=== PATIENT | female | born 2000 | race Caucasian/White ===

== ENCOUNTER 2019-09-25 13:38 | Outpatient (CLI) | payer MEDICAID ==
[~2019-09-25] VITALS: Ht 167.6 cm; Wt 90.7 kg
[2019-09-25 13:42] VITALS: BP 125/76
[2019-09-25 14:19] LABS: MICROSCOPIC INDICATED
[2019-09-25] MEDS ORDERED: PREN1TAB60 PO (14:25)
[2019-09-25] MEDS ORDERED: ASPI-496 PO (14:25)
== END 2019-09-25 15:12 | disposition home or self-care (01) ==
LOC: LDOP 13:38
PROVIDERS: ATTEND Obstetrics & Gynecology
DX: O42.912 Preterm premature rupture of membranes, unspecified as to length of time between rupture and onset of labor, second trimester (principal); Z3A.26 26 weeks gestation of pregnancy
CPT/HCPCS: 59025; 81001; 84112; 87086; 99201; G0463

== ENCOUNTER 2019-09-28 18:53 | Observation (INO) | payer OTHER, MEDICAID ==
[~2019-09-28] VITALS: Ht 167.6 cm; Wt 91.0 kg
[~2019-09-28 18:53] MED LIST: ASPI-496 PO; PREN1TAB60 PO
[2019-09-28 19:00] VITALS: BP 129/77
[2019-09-28 19:15] LABS: MICROSCOPIC NOT IND
[2019-09-28] MEDS ORDERED: TERBUTALINE 1 MG/ML, 1ML IV STA (20:27)
[2019-09-28] MEDS ORDERED: TERBUTALINE 1 MG/ML, 1ML ONE (20:29)
== END 2019-09-28 23:23 | disposition home or self-care (01) ==
LOC: LDOP 18:53 → LDIP 20:47
PROVIDERS: ADMIT Obstetrics & Gynecology; ATTEND Obstetrics & Gynecology
DX: O23.42 Unspecified infection of urinary tract in pregnancy, second trimester (principal); O26.892 Other specified pregnancy related conditions, second trimester; R10.2 Pelvic and perineal pain; O99.89 Other specified diseases and conditions complicating pregnancy, childbirth and the puerperium; M54.2 Cervicalgia; Z3A.26 26 weeks gestation of pregnancy
CPT/HCPCS: 81003; 87086; 96374; 99211; G0378; J3105; 96372; G0463

== ENCOUNTER 2019-09-30 12:01 | Outpatient (CLI) | payer OTHER, MEDICAID ==
[~2019-09-30] VITALS: Ht 167.6 cm; Wt 91.3 kg
[2019-09-30] MEDS ORDERED: BETAMETHASONE 6 MG/ML, 5ML IM ONE (12:27)
[2019-09-30] MEDS ORDERED: BETAMETHASONE 6 MG/ML, 5ML IM SCH (12:30)
[2019-09-30 12:47] LABS: MICROSCOPIC INDICATED
[2019-09-30 12:51] VITALS: BP 139/65
[2019-09-30] MEDS ORDERED: PLEASE ENTER HEIGHT AND WEIGHT MC SCH (13:00)
[2019-09-30 17:55] LABS: AMPHETAMINE SCREEN, URINE Negative (Negative); BARBITURATE SCREEN, URINE Negative (Negative); BENZODIAZEPINE SCREEN, URINE Negative (Negative); CANNABINOID SCREEN, URINE Negative (Negative); COCAINE SCREEN, URINE Negative (Negative); METHADONE SCREEN, URINE Negative (Negative); OPIATE SCREEN, URINE Negative (Negative)
== END 2019-09-30 13:30 | disposition home or self-care (01) ==
LOC: LDOP 12:01
PROVIDERS: ATTEND Obstetrics & Gynecology
DX: O99.89 Other specified diseases and conditions complicating pregnancy, childbirth and the puerperium (principal); R10.9 Unspecified abdominal pain; Z3A.27 27 weeks gestation of pregnancy; Z79.899 Other long term (current) drug therapy
CPT/HCPCS: 59025; 76815; 80307; 81001; 84112; 87086; 96372; 99211; J0702; G0463

== ENCOUNTER 2019-10-01 12:17 | Outpatient (CLI) | payer OTHER, MEDICAID ==
[~2019-10-01] VITALS: Ht 167.6 cm; Wt 92.3 kg
[2019-10-01 12:31] VITALS: BP 134/75
[2019-10-01] MEDS ORDERED: BETAMETHASONE 6 MG/ML, 5ML IM ONE (13:00)
== END 2019-10-01 13:10 | disposition home or self-care (01) ==
LOC: LDOP 12:17
PROVIDERS: ATTEND Obstetrics & Gynecology
DX: O26.892 Other specified pregnancy related conditions, second trimester (principal); Z3A.27 27 weeks gestation of pregnancy; Z79.899 Other long term (current) drug therapy
CPT/HCPCS: 81003; 96372; 99211; J0702; G0463

== ENCOUNTER 2019-10-17 18:16 | Outpatient (CLI) | payer OTHER, MEDICAID ==
[~2019-10-17] VITALS: Ht 167.6 cm; Wt 92.7 kg
[2019-10-17 19:36] LABS: MICROSCOPIC NOT IND
[2019-10-17] MEDS ORDERED: NIFE10CA49 PO (19:50)
== END 2019-10-17 20:59 | disposition home or self-care (01) ==
LOC: LDOP 18:16
PROVIDERS: ATTEND Obstetrics & Gynecology
DX: O42.913 Preterm premature rupture of membranes, unspecified as to length of time between rupture and onset of labor, third trimester (principal); Z3A.29 29 weeks gestation of pregnancy
CPT/HCPCS: 59025; 76815; 81003; 84112; 99211; G0463

== ENCOUNTER 2019-11-22 20:44 | Outpatient (CLI) | payer OTHER, MEDICAID ==
[~2019-11-22] VITALS: Ht 167.6 cm; Wt 96.8 kg
[~2019-11-22 20:44] MED LIST changes: +NIFE10CA49 PO
[2019-11-22] MEDS ORDERED: ACETAMINOPHEN 325 MG TABLET ONE (21:06)
[2019-11-22 21:14] LABS: MICROSCOPIC INDICATED
[2019-11-22] MEDS ORDERED: ACETAMINOPHEN 325 MG TABLET PO PRN (21:30)
== END 2019-11-22 22:41 | disposition home or self-care (01) ==
LOC: LDOP 20:44
PROVIDERS: ATTEND Obstetrics & Gynecology
DX: O42.913 Preterm premature rupture of membranes, unspecified as to length of time between rupture and onset of labor, third trimester (principal); O62.9 Abnormality of forces of labor, unspecified; Z3A.34 34 weeks gestation of pregnancy
CPT/HCPCS: 59025; 81001; 87086

== ENCOUNTER → 2019-12-09 | Outpatient (CLI) | payer OTHER, MEDICAID ==
[~2019-12-09] MED LIST changes: +ACETAMINOPHEN 500 MG TABLET ONE; +BUPIVACAINE 0.25% ONE; +IBUP-1902 PO; +LIDOCAINE 1%, 20ML ONE; +MISOPROSTOL 200 MCG TABLET ONE; +NEWBORN KIT ONE; +ONDANSETRON 2MG/ML, 2ML ONE; +OXYTOCIN 30U/ 0.9% NaCL 500ML 500 ML ONE
== END | disposition home or self-care (01) ==
LOC: LDOP 14:54
PROVIDERS: ATTEND Obstetrics & Gynecology
DX: O13.3 Gestational [pregnancy-induced] hypertension without significant proteinuria, third trimester (principal); Z3A.37 37 weeks gestation of pregnancy
CPT/HCPCS: 59025; 84112

== ENCOUNTER 2019-12-11 14:24 | Inpatient (IN) | payer OTHER, MEDICAID ==
[~2019-12-11] VITALS: Ht 167.6 cm; Wt 98.2 kg
[~2019-12-11 14:24] MED LIST changes: -ACETAMINOPHEN 500 MG TABLET ONE; -BUPIVACAINE 0.25% ONE; -IBUP-1902 PO; -LIDOCAINE 1%, 20ML ONE; -MISOPROSTOL 200 MCG TABLET ONE; -NEWBORN KIT ONE; -ONDANSETRON 2MG/ML, 2ML ONE; -OXYTOCIN 30U/ 0.9% NaCL 500ML 500 ML ONE
[2019-12-11] MEDS ORDERED: OXYTOCIN 30U/ 0.9% NaCL 500ML 500 ML IV ONE (14:46)
[2019-12-11] MEDS ORDERED: D5%-LACTATED RINGERS 1,000 ML IV SCH (14:46)
[2019-12-11] MEDS ORDERED: OXYTOCIN 30U/ 0.9% NaCL 500ML 500 ML IV PRN (14:46)
[2019-12-11] MEDS ORDERED: OXYTOCIN 30U/ 0.9% NaCL 500ML 500 ML ONE (14:51)
[2019-12-11] MEDS ORDERED: TERBUTALINE 1 MG/ML, 1ML IVPush PRN (15:00)
[2019-12-11] MEDS ORDERED: FENTANYL PF 100 MCG/2ML IVPush PRN (15:00)
[2019-12-11] MEDS ORDERED: CALCIUM CARBONATE 500 MG TAB.CHEW PO PRN (15:00)
[2019-12-11] MEDS ORDERED: ONDANSETRON 2MG/ML, 2ML IVPush PRN (15:00)
[2019-12-11] MEDS ORDERED: FENTANYL PF 100 MCG/2ML IV PRN (15:00)
[2019-12-11] MEDS ORDERED: TERBUTALINE 1 MG/ML, 1ML SQ PRN (15:00)
[2019-12-11 15:16] LABS: BASOPHILS # (AUTO) 0.01 x10^3/uL (0-0.3); BASOPHILS % (AUTO) 0 % (0-1); EOSINOPHILS # (AUTO) 0.07 x10^3/uL (0-0.8); EOSINOPHILS % (AUTO) 1 % (1-7); LYMPHOCYTES # (AUTO) 1.58 x10^3/uL (1-6.1); LYMPHOCYTES % (AUTO) 21 % (22-44); MD NO; MEAN CORPUSCULAR VOLUME 91.1 fL (80-100); MEAN PLATELET VOLUME 10.2 fL (7.4-10.4); MONOCYTES # (AUTO) 0.26 x10^3/uL (0-1.4); MONOCYTES % (AUTO) 4 % (2-9); NEUTROPHILS # (AUTO) 5.64 x10^3/uL (1.8-8.0); NEUTROPHILS % (AUTO) 75 % (42-75); PLATELET COUNT 206 x10^3/uL (130-400); RED BLOOD COUNT 3.89 x10^6/uL (3.82-5.3); RED CELL DISTRIBUTION WIDTH 13.6 % (9.6-15.2)
[2019-12-11 15:17] LABS: ALANINE AMINOTRANSFERASE 44 U/L (12-78); ALBUMIN 2.6 g/dL (3.4-5.0); ANION GAP 8 mmol/L (5-15); CALCIUM 8.7 mg/dL (8.5-10.1); CHLORIDE 107 mmol/L (98-107); CREATININE 0.57 mg/dL (0.55-1.02)
[2019-12-11 15:19] LABS: ALKALINE PHOSPHATASE 153 U/L (45-117); BILIRUBIN,TOTAL 0.2 mg/dL (0.2-1.0); TOTAL PROTEIN 6.7 g/dL (6.4-8.2)
[2019-12-11 15:21] LABS: BILIRUBIN, DIRECT < 0.1 mg/dL (0.1-0.2)
[2019-12-11] MEDS ORDERED: MISOPROSTOL 25 MCG TABLET ONE ×2 (15:26→19:40)
[2019-12-11] MEDS: MISOPROSTOL 25 MCG TABLET VG PRN ×2 (15:30→19:58)
[2019-12-11] MEDS: LACTATED RINGERS 1,000 ML IV SCH (15:30)
[2019-12-11 15:36] LABS: MICROSCOPIC NOT IND
[2019-12-11 15:49] LABS: CREATININE,URINE RANDOM 37.7 mg/dL
[2019-12-11] MEDS ORDERED: PLEASE ENTER HEIGHT AND WEIGHT MC SCH (16:30)
[2019-12-11] MEDS ORDERED: ACETAMINOPHEN 325 MG TABLET ONE (18:01)
[2019-12-11] MEDS: ACETAMINOPHEN 325 MG TABLET PO PRN (18:06)
[2019-12-12] MEDS ORDERED: DIPHENHYDRAMINE 25 MG CAPSULE ONE (00:40)
[2019-12-12] MEDS ORDERED: DIPHENHYDRAMINE 25 MG CAPSULE PO PRN (01:00)
[2019-12-12] MEDS: LACTATED RINGERS 1,000 ML IV SCH (03:30)
[2019-12-12] MEDS ORDERED: FENTANYL/BUPIV./NS/PF 250 ML EPIDCONT ONE ×2 (09:44→10:10)
[2019-12-12] MEDS ORDERED: BUPIVACAINE 0.25% ONE (10:10)
[2019-12-12] MEDS ORDERED: LIDOCAINE/PF 1.5%-EPI 1:200K, 30ML ONE (10:10)
[2019-12-12] MEDS ORDERED: LIDOCAINE 1%, 20ML ONE (10:10)
[2019-12-12] MEDS ORDERED: FENTANYL/BUPIV./NS/PF 250 ML EPIDCONT SCH (10:39)
[2019-12-12] MEDS ORDERED: LACTATED RINGERS 1,000 ML IV SCH (10:39)
[2019-12-12] MEDS ORDERED: EPHEDRINE 50 MG/ML, 1ML IVPush PRN (11:00)
[2019-12-12] MEDS ORDERED: ONDANSETRON 2MG/ML, 2ML IVPush PRN (11:00)
[2019-12-12] MEDS ORDERED: DIPHENHYDRAMINE 50 MG/ML, 1ML IVPush PRN (11:00)
[2019-12-12] MEDS ORDERED: NALOXONE 0.4 MG/ML, 1ML IVPush PRN (11:00)
[2019-12-12] MEDS ORDERED: LACTATED RINGERS 1,000 ML IVBOLUS PRN (11:00)
[2019-12-12 17:00] VITALS: BP 122/82
[2019-12-12] MEDS ORDERED: ACETAMINOPHEN 500 MG TABLET PO ONE (17:00)
[2019-12-12] MEDS ORDERED: OXYTOCIN 30U/ 0.9% NaCL 500ML 500 ML IV SCH (17:06)
[2019-12-12] MEDS ORDERED: MISOPROSTOL 200 MCG TABLET PR PRN (17:30)
[2019-12-12] MEDS ORDERED: OXYcodone/APAP 5/325MG TABLET PO PRN ×2 (17:30)
[2019-12-12] MEDS ORDERED: SIMETHICONE 80 MG CHEW TAB PO PRN (17:30)
[2019-12-12] MEDS ORDERED: ONDANSETRON 2MG/ML, 2ML IV PRN (17:30)
[2019-12-12] MEDS ORDERED: DOCUSATE 100 MG CAPSULE PO PRN (17:30)
[2019-12-12] MEDS: ACETAMINOPHEN 325 MG TABLET PO PRN (20:49)
[2019-12-12 20:50] VITALS: BP 117/82
[2019-12-12 21:14] LABS: BASOPHILS # (AUTO) 0.02 x10^3/uL (0-0.3); BASOPHILS % (AUTO) 0 % (0-1); EOSINOPHILS # (AUTO) 0.01 x10^3/uL (0-0.8); EOSINOPHILS % (AUTO) 0 % (1-7); LYMPHOCYTES # (AUTO) 1.33 x10^3/uL (1-6.1); LYMPHOCYTES % (AUTO) 19 % (22-44); MD NO; MEAN CORPUSCULAR HEMOGLOBIN 30.5 pg (27.0-34.8); MEAN CORPUSCULAR HGB CONC 33.8 g/dL (32.4-35.8); MEAN CORPUSCULAR VOLUME 90.3 fL (80-100); MEAN PLATELET VOLUME 9.9 fL (7.4-10.4); MONOCYTES # (AUTO) 0.36 x10^3/uL (0-1.4); MONOCYTES % (AUTO) 5 % (2-9); NEUTROPHILS # (AUTO) 5.37 x10^3/uL (1.8-8.0); NEUTROPHILS % (AUTO) 76 % (42-75); PLATELET COUNT 184 x10^3/uL (130-400); RED BLOOD COUNT 3.93 x10^6/uL (3.82-5.3); RED CELL DISTRIBUTION WIDTH 13.4 % (9.6-15.2)
[2019-12-12 23:41] VITALS: BP 124/80
[2019-12-13 03:34] VITALS: BP 118/79
[2019-12-13 07:30] VITALS: BP 112/78
[2019-12-13] MEDS: ACETAMINOPHEN 325 MG TABLET PO PRN (08:48)
[2019-12-13] MEDS ORDERED: PRENATAL VIT/IRON/FA 1 EACH TABLET PO SCH (09:00)
[2019-12-13] MEDS ORDERED: IBUP-1902 PO (13:10)
== END 2019-12-13 14:00 | disposition home or self-care (01) | DRG 807 ==
LOC: LDIP 14:24 → 2NW 12-12 16:36
PROVIDERS: ADMIT Obstetrics & Gynecology; ATTEND Obstetrics & Gynecology
PROC: 10E0XZZ Delivery of Products of Conception, External Approach (ICD-10-PCS; principal; 2019-12-12)
PROC: 0UQMXZZ Repair Vulva, External Approach (ICD-10-PCS; 2019-12-12)
PROC: 10H07YZ Insertion of Other Device into Products of Conception, Via Natural or Artificial Opening (ICD-10-PCS; 2019-12-12)
PROC: 3E0R3BZ Introduction of Anesthetic Agent into Spinal Canal, Percutaneous Approach (ICD-10-PCS; 2019-12-12)
PROC: 00HU33Z Insertion of Infusion Device into Spinal Canal, Percutaneous Approach (ICD-10-PCS; 2019-12-12)
DX: O13.4 Gestational [pregnancy-induced] hypertension without significant proteinuria, complicating childbirth (principal); Z37.0 Single live birth; Z3A.37 37 weeks gestation of pregnancy; Z79.82 Long term (current) use of aspirin; O70.0 First degree perineal laceration during delivery
CPT/HCPCS: 36415; J3490; 80053; 81003; 82248; 82570; 84156; 84550; 85025; 86592; 86850; 86900; G0378; J2405; J2590; J3010; J7120; Q0163